=== PATIENT | female | born 1990 | race African-American/Black ===

== ENCOUNTER 2016-05-26 14:29 | Observation (INO) | payer SELFPAY ==
[2016-05-26] VITALS (7 sets, daily range): BP systolic 117–150; BP diastolic 59–78; PULSE 101–128; RESP 16–38; TEMP 98.9–102.8; O2SAT 96–100
[~2016-05-26] VITALS: Ht 175.3 cm; Wt 77.5 kg
[~2016-05-26 14:29] MED LIST: BACT800T5 PO; HYDR-3535 PO; LORTA5 PO; MACR100C2 PO; TEMA15 PO
[2016-05-26] MEDS ORDERED: IBUPROFEN 800 MG TAB PO ONE (15:00)
[2016-05-26] MEDS ORDERED: ACETAMINOPHEN 325 MG TAB PO ONE (15:00)
--- NOTE | 2016-05-26 15:03 | PD ---
HPI Chief Complaint: Respiratory Symptoms Time Seen by Provider: 15:03 Travel History International Travel<30 days: No Contact w/Intl Traveler<30days: No Traveled to known affect area: No History of Present Illness HPI 26-year-old female with history of asthma presents to the emergency department for evaluation of difficulty breathing with cough, chest congestion, fever, chills. Patient states that she feels as though she may have been "battling off something" for an unknown amount of time but was awoken this morning by not being able to breathe. Denies any nausea or vomiting. No diarrhea. Patient has no other symptoms to report at this time. PFSH Past Medical History Asthma: Yes Blood Disorders: No Cancer: No Cardiovascular Problems: No Chemotherapy: No Diminished Hearing: No Endocrine: No Gastrointestinal Disorders: No Genitourinary: No Headaches: Yes (WITH ASTHMIC EPISODES) Immune Disorder: No Implanted Vascular Access Dvce: No Musculoskeletal: Yes Neurologic: Yes Psychiatric: No Reproductive: No Respiratory: Yes (ASTHMA) Immunizations Current: No Radiation Therapy: No : 0 Para: 0 Miscarriage: 0 : 0 Past Surgical History AICD: No Arteriovenous Shunt: No Gynecologic Surgery: Yes (cyst removed from breast BILATERAL) Insulin Pump: No Joint Replacement: No Pacemaker: No Other Surgery: Yes (BILATERAL BREAST CYSTS) Social History Alcohol Use: No Tobacco Use: No Substance Use: Yes (H/O MARIJUANA DAILY) Allergies-Medications (Allergen,Severity, Reaction): Coded Allergies: No Known Allergies (Verified , 05/26/16) Reported Meds & Prescriptions Reported Meds & Active Scripts Active Reported Flexeril (Cyclobenzaprine HCl) 7.5 Mg Tab Unknown Dose PO TID Hydrocodone-Acetaminophen 10-325 mg Tab 1 Tab PO Q4H PRN Review of Systems Except as stated in HPI: all other systems reviewed are Neg Physical Exam Narrative GENERAL: Well-nourished female patient, ambulatory and in no acute distress SKIN: Warm and dry. HEAD: Atraumatic. Normocephalic. EYES: Pupils equal and round. No scleral icterus. No injection or drainage. ENT: No nasal bleeding or discharge. Mucous membranes pink and moist. NECK: Trachea midline. No JVD. CARDIOVASCULAR: Tachycardic rate and rhythm. No murmur appreciated. RESPIRATORY: Tachypneic. No accessory muscle use. Diminished throughout with a very faint inspiratory and expiratory wheeze to auscultation. Breath sounds equal bilaterally. GASTROINTESTINAL: Abdomen soft, non-tender, nondistended. Hepatic and splenic margins not palpable. MUSCULOSKELETAL: No obvious deformities. No clubbing. No cyanosis. No edema. NEUROLOGICAL: Awake and alert. No obvious cranial nerve deficits. Motor grossly within normal limits. Normal speech. PSYCHIATRIC: Appropriate mood and affect; insight and judgment normal. Data Data Last Documented VS Vital Signs Date Time Temp Pulse Resp B/P Pulse Ox O2 Delivery O2 Flow Rate FiO2 05/26/16 17:25 99 Nasal Cannula 2 05/26/16 17:15 114 18 05/26/16 17:15 102.8 146/73 Orders Electrocardiogram (05/26/16 15:00) Complete Blood Count With Diff (05/26/16 15:00) Comprehensive Metabolic Panel (05/26/16 15:00) Prothrombin Time / Inr (Pt) (05/26/16 15:00) Act Partial Throm Time (Ptt) (05/26/16 15:00) Lactic Acid Sepsis Protocol (05/26/16 15:00) Ckmb (Isoenzyme) Profile (05/26/16 15:00) Troponin I (05/26/16 15:00) Urinalysis - C+S If Indicated (05/26/16 15:00) Influenzae A/B Antigen (05/26/16 15:00) Blood Culture (05/26/16 15:00) Chest, Single Ap (05/26/16 15:00) Acetaminophen (Tylenol) (05/26/16 15:00) Ibuprofen (Motrin) (05/26/16 15:00) Ed Urine Pregnancytest Poc (05/26/16 15:00) Albuterol-Ipratropium Neb (Duoneb Neb) (05/26/16 15:30) D-Dimer (05/26/16 15:19) CKMB (05/26/16 15:10) CKMB% (05/26/16 15:10) Albuterol-Ipratropium Neb (Duoneb Neb) (05/26/16 17:45) Ct Pulmonary Angiogram (05/26/16 17:37) Ceftriaxone Inj (Rocephin Inj) (05/26/16 17:45) Azithromycin Inj (Zithromax Inj) (05/26/16 17:45) Labs Laboratory Tests Test 05/26/16 05/26/16 05/26/16 13:10 15:00 15:10 Prothrombin Time 11.0 SEC Prothromb Time International 1.0 RATIO Ratio Activated Partial 27.2 SEC Thromboplast Time D-Dimer Quantitative (PE/DVT) 1.24 MG/L FEU Urine Color COLORLESS Urine Turbidity CLEAR Urine pH 6.0 Urine Specific [place] 1.003 Urine Protein NEG mg/dL Urine Glucose (UA) NEG mg/dL Urine Ketones NEG mg/dL Urine Occult Blood SMALL Urine Nitrite NEG Urine Bilirubin NEG Urine Urobilinogen LESS THAN 2.0 MG/DL Urine Leukocyte Esterase NEG Urine RBC 1 /hpf Urine WBC LESS THAN 1 /hpf Urine Squamous Epithelial <1 /hpf Cells Microscopic Urinalysis Comment CULT NOT INDICATED White Blood Count 6.6 TH/MM3 Red Blood Count 4.06 MIL/MM3 Hemoglobin 10.6 GM/DL Hematocrit 32.9 % Mean Corpuscular Volume 81.1 FL Mean Corpuscular Hemoglobin 26.1 PG Mean Corpuscular Hemoglobin 32.2 % Concent Red Cell Distribution Width 17.1 % Platelet Count 276 TH/MM3 Mean Platelet Volume 7.4 FL Neutrophils (%) (Auto) 84.0 % Lymphocytes (%) (Auto) 6.5 % Monocytes (%) (Auto) 7.9 % Eosinophils (%) (Auto) 1.4 % Basophils (%) (Auto) 0.2 % Neutrophils # (Auto) 5.5 TH/MM3 Lymphocytes # (Auto) 0.4 TH/MM3 Monocytes # (Auto) 0.5 TH/MM3 Eosinophils # (Auto) 0.1 TH/MM3 Basophils # (Auto) 0.0 TH/MM3 CBC Comment DIFF FINAL Differential Comment Sodium Level 139 MEQ/L Potassium Level 3.3 MEQ/L Chloride Level 107 MEQ/L Carbon Dioxide Level 22.9 MEQ/L Anion Gap 9 MEQ/L Blood Urea Nitrogen 6 MG/DL Creatinine 0.97 MG/DL Estimat Glomerular Filtration 83 ML/MIN Rate Random Glucose 80 MG/DL Lactic Acid Level 2.1 mmol/L Calcium Level 8.7 MG/DL Total Bilirubin 0.4 MG/DL Aspartate Amino Transf 11 U/L (AST/SGOT) Alanine Aminotransferase 21 U/L (ALT/SGPT) Alkaline Phosphatase 83 U/L Total Creatine Kinase 257 U/L Creatine Kinase MB LESS THAN 0.5 NG/ML Creatine Kinase MB % 0.2 % Troponin I LESS THAN 0.02 NG/ML Total Protein 7.9 GM/DL Albumin 3.8 GM/DL MDM Medical Decision Making Medical Screen Exam Complete: Yes Emergency Medical Condition: Yes Medical Record Reviewed: Yes Differential Diagnosis Asthma exacerbation versus pneumonia versus influenza versus sepsis Narrative Course 26 year-old female presents to emergency department for evaluation. Workup was initiated in triage. Once a medical bed becomes available, patient will be transferred and care assumed by that provider. Condition: Stable Francisca Cash May 26, 2016 15:03
--- NOTE | 2016-05-26 15:29 | RADRPT ---
EXAM DATE/TIME: 05/26/2016 15:28 [facility] COMPARISON: No previous studies available for comparison. INDICATIONS : Severe shortness of breath with history of asthma. MEDICAL HISTORY : asthma SURGICAL HISTORY : None. ENCOUNTER: Initial ACUITY: 1 day PAIN SCORE: 3/10 LOCATION: Bilateral upper chest FINDINGS: A single view of the chest demonstrates the lungs to be symmetrically aerated without evidence of mas s, infiltrate or effusion. The cardiomediastinal contours are unremarkable. Osseous structures are intact. CONCLUSION: No acute disease. Tom Ordoñez MD FACR on May 26, 2016 at 15:27 Board Certified Radiologist. This report was verified electronically.
[2016-05-26] MEDS ORDERED: RESP: ALBUTEROL 2.5 MG/IPRATROPIUM 0.5 MG NEB (SCH) NEB ONE (15:30)
[2016-05-26 15:47] LABS: AUTOMATED NEUTROPHIL # 5.5 TH/MM3 (1.8-7.7); BASOPHIL % 0.2 % (0.0-2.0); EOSINOPHIL # 0.1 TH/MM3 (0-0.4); EOSINOPHIL % 1.4 % (0.0-4.0); HEMATOCRIT 32.9 % (35.0-46.0); HEMO FLAGS DIFF FINAL; LYMPH % 6.5 % (9.0-44.0); LYMPHOCYTE # 0.4 TH/MM3 (1.0-4.8); MEAN CELL VOLUME 81.1 FL (80.0-100.0); MEAN CORPUSCULAR HEMOGLOBIN 26.1 PG (27.0-34.0); MEAN CORPUSCULAR HGB CONC 32.2 % (32.0-36.0); MONO % 7.9 % (0.0-8.0); PLATELET COUNT 276 TH/MM3 (150-450); RED BLOOD COUNT 4.06 MIL/MM3 (4.00-5.30); RED CELL DISTRIBUTION WIDTH 17.1 % (11.6-17.2); WHITE BLOOD COUNT 6.6 TH/MM3 (4.0-11.0)
[2016-05-26 15:52] LABS: BLOOD, URINE SMALL (NEG); GLUCOSE,URINE NEG (NEG); KETONE, URINE NEG (NEG); NITRITE,URINE NEG (NEG); SQUAMOUS EPITHELIAL CELL URINE <1 /hpf (0-5); URINE COLOR COLORLESS (YELLW/STRAW)
[2016-05-26 16:06] LABS: COMMENT (UR) CULT NOT INDICATED; CULTURE IF INDICATED CULT NOT INDICATED
[2016-05-26 16:08] LABS: APTT (PATIENT) 27.2 SEC (24.3-30.1)
[2016-05-26 16:16] LABS: ANION GAP 9 MEQ/L (5-15); AST (GOT) 11 U/L (15-37); BICARBONATE 22.9 MEQ/L (21.0-32.0); BLOOD UREA NITROGEN 6 MG/DL (7-18); CHLORIDE 107 MEQ/L (98-107); GLOMERULAR FILTRATION RATE 83 ML/MIN (>89); POTASSIUM 3.3 MEQ/L (3.5-5.1); SODIUM (NA) 139 MEQ/L (136-145)
[2016-05-26 16:21] LABS: ALKALINE PHOSPHATASE 83 U/L (45-117); ALT (GPT) 21 U/L (10-53); CREATINE KINASE 257 U/L (26-192); TOTAL BILIRUBIN ADULT 0.4 MG/DL (0.2-1.0)
[2016-05-26 16:35] LABS: CKMB LESS THAN 0.5 NG/ML (0.5-3.6)
[2016-05-26] MEDS ORDERED: HYDR-3583 PO (17:21)
[2016-05-26] MEDS ORDERED: CYCL7.5T33 PO (17:21)
[2016-05-26 17:37] LABS: LACTIC ACID GHOST NOT REPORTABLE
[2016-05-26] MEDS ORDERED: cefTRIAXone INJ 2,000 MG in SODIUM CHLORIDE 0.9% INJ 100 ML IV ONE (17:45)
[2016-05-26] MEDS ORDERED: AZITHROMYCIN INJ 500 MG in SODIUM CHLOR 0.9% 250 ML INJ 250 ML IV ONE (17:45)
--- NOTE | 2016-05-26 18:13 | PD ---
Physical Exam Date Seen by Provider: May 26, 2016 Time Seen by Provider: 17:30 Narrative Patient presented to the A pod from triage where she had been initially evaluated by PA. Her chief complaint was cough, shortness of breath, congestion , fever and chills. Her chest exam shows decreased breath sounds with respiratory expiratory wheezing. Data Data Last Documented VS Vital Signs Date Time Temp Pulse Resp B/P Pulse Ox O2 Delivery O2 Flow Rate FiO2 05/26/16 18:30 100.7 102 18 134/59 98 Nasal Cannula 2 Orders Electrocardiogram (05/26/16 15:00) Complete Blood Count With Diff (05/26/16 15:00) Comprehensive Metabolic Panel (05/26/16 15:00) Prothrombin Time / Inr (Pt) (05/26/16:00) Act Partial Throm Time (Ptt) (05/26/16:00) Lactic Acid Sepsis Protocol (05/26/16 15:00) Ckmb (Isoenzyme) Profile (05/26/16 15:00) Troponin I (05/26/16 15:00) Urinalysis - C+S If Indicated (05/26/16 15:00) Influenzae A/B Antigen (05/26/16 15:00) Blood Culture (05/26/16 15:00) Chest, Single Ap (05/26/16 15:00) Acetaminophen (Tylenol) (05/26/16 15:00) Ibuprofen (Motrin) (05/26/16 15:00) Ed Urine Pregnancytest Poc (05/26/16 15:00) Albuterol-Ipratropium Neb (Duoneb Neb) (05/26/16 15:30) D-Dimer (05/26/16 15:19) CKMB (05/26/16 15:10) CKMB% (05/26/16 15:10) Albuterol-Ipratropium Neb (Duoneb Neb) (05/26/16 17:45) Ct Pulmonary Angiogram (05/26/16 17:37) Ceftriaxone Inj (Rocephin Inj) (05/26/16 17:45) Azithromycin Inj (Zithromax Inj) (05/26/16 17:45) Sodium Chlor 0.9% 1000 Ml Inj (Ns 1000 M (05/26/16 19:00) Sodium Chlor 0.9% 1000 Ml Inj (Ns 1000 M (05/26/16 19:00) Iohexol 350 Inj (Omnipaque 350 Inj) (05/26/16 19:15) Labs Laboratory Tests Test 05/26/16 05/26/16 05/26/16 05/26/16 13:10 15:00 15:10 17:25 Prothrombin Time 11.0 SEC Prothromb Time International 1.0 RATIO Ratio Activated Partial 27.2 SEC Thromboplast Time D-Dimer Quantitative (PE/DVT) 1.24 MG/L FEU Urine Color COLORLESS Urine Turbidity CLEAR Urine pH 6.0 Urine Specific [place] 1.003 Urine Protein NEG mg/dL Urine Glucose (UA) NEG mg/dL Urine Ketones NEG mg/dL Urine Occult Blood SMALL Urine Nitrite NEG Urine Bilirubin NEG Urine Urobilinogen LESS THAN 2.0 MG/DL Urine Leukocyte Esterase NEG Urine RBC 1 /hpf Urine WBC LESS THAN 1 /hpf Urine Squamous Epithelial <1 /hpf Cells Microscopic Urinalysis Comment CULT NOT INDICATED White Blood Count 6.6 TH/MM3 Red Blood Count 4.06 MIL/MM3 Hemoglobin 10.6 GM/DL Hematocrit 32.9 % Mean Corpuscular Volume 81.1 FL Mean Corpuscular Hemoglobin 26.1 PG Mean Corpuscular Hemoglobin 32.2 % Concent Red Cell Distribution Width 17.1 % Platelet Count 276 TH/MM3 Mean Platelet Volume 7.4 FL Neutrophils (%) (Auto) 84.0 % Lymphocytes (%) (Auto) 6.5 % Monocytes (%) (Auto) 7.9 % Eosinophils (%) (Auto) 1.4 % Basophils (%) (Auto) 0.2 % Neutrophils # (Auto) 5.5 TH/MM3 Lymphocytes # (Auto) 0.4 TH/MM3 Monocytes # (Auto) 0.5 TH/MM3 Eosinophils # (Auto) 0.1 TH/MM3 Basophils # (Auto) 0.0 TH/MM3 CBC Comment DIFF FINAL Differential Comment Sodium Level 139 MEQ/L Potassium Level 3.3 MEQ/L Chloride Level 107 MEQ/L Carbon Dioxide Level 22.9 MEQ/L Anion Gap 9 MEQ/L Blood Urea Nitrogen 6 MG/DL Creatinine 0.97 MG/DL Estimat Glomerular Filtration 83 ML/MIN Rate Random Glucose 80 MG/DL Lactic Acid Level 2.1 mmol/L 1.6 mmol/L Calcium Level 8.7 MG/DL Total Bilirubin 0.4 MG/DL Aspartate Amino Transf 11 U/L (AST/SGOT) Alanine Aminotransferase 21 U/L (ALT/SGPT) Alkaline Phosphatase 83 U/L Total Creatine Kinase 257 U/L Creatine Kinase MB LESS THAN 0.5 NG/ML Creatine Kinase MB % 0.2 % Troponin I LESS THAN 0.02 NG/ML Total Protein 7.9 GM/DL Albumin 3.8 GM/DL [facility] Supervised Visit with HORACE: Yes Interpretation(s) EKG shows a sinus rhythm with a rate of 102. No ST segment elevation or depression. Differential Diagnosis Differential diagnosis includes but is not limited to viral respiratory illness , bronchitis, pneumonia, allergies, CHF, asthma/COPD. Narrative Course Patient presented for evaluation of respiratory symptoms. Last Impressions Chest X-Ray 05/26/16 1500 Signed Impressions: Service Date/Time: Tuesday, May 26, 2016 15:28 - CONCLUSION: No acute disease. Tom Ordoñez MD FACR The chest x-ray was independently viewed by me. CBC & BMP Diagram 05/26/16 15:10 Cardiac enzymes are negative. Initial lactic acid was 2.1. Repeat lactic acid was 1.6. UA is negative. Flu screen is negative. D-dimer is 1.24 which has prompted the ordering of a CT for PE. In the meantime, the patient is being treated with Duonebs and empiric ABX for pneumonia including Rocephin and Zithromax. CT for PE is negative. This patient needs sepsis criteria. Sepsis Criteria SIRS Criteria (2 or more): Temp > 100.9 or < 96.8, Heart rate over 90, RR > 20 or PaCO2 < 32 Sepsis Criteria (SIRS+source): Infect source susp/known Diagnosis Primary Impression: Sepsis Qualified Code: A41.9 - Sepsis, due to unspecified organism Condition: Daly Ordoñez MD May 26, 2016 18:13
[2016-05-26] MEDS: RESP: ALBUTEROL 2.5 MG/IPRATROPIUM 0.5 MG NEB (SCH) INH (18:32)
[2016-05-26] MEDS ORDERED: SODIUM CHLOR 0.9% 1000 ML INJ 1,000 ML IV SCH (19:00)
[2016-05-26] MEDS ORDERED: SODIUM CHLOR 0.9% 1000 ML INJ 1,000 ML IV ONE (19:00)
[2016-05-26] MEDS ORDERED: IOHEXOL 350 MG/ML 10 ML VIAL (for RAD DIAG) IV ONE (19:15)
--- NOTE | 2016-05-26 19:36 | RADRPT ---
EXAM DATE/TIME: 05/26/2016 19:02 [facility] COMPARISON: No previous studies available for comparison. INDICATIONS : Cough and congestion, short of breath IV CONTRAST: 50 cc Omnipaque 350 (iohexol) IV RADIATION DOSE: 13.52 CTDIvol (mGy) MEDICAL HISTORY : Asthma. SURGICAL HISTORY : Back surgery. Bilateral breast cysts removed. ENCOUNTER: Initial ACUITY: 1 day PAIN SCALE: 2/10 LOCATION: Bilateral chest TECHNIQUE: Volumetric scanning of the chest was performed using a pulmonary embolism protocol MIP images were re constructed. Using automated exposure control and adjustment of the mA and/or kV according to patien t size, radiation dose was kept as low as reasonably achievable to obtain optimal diagnostic quality images. FINDINGS: PULMONARY ARTERIES: No filling defects are seen in the pulmonary arteries through the segmental level. LUNGS: There is no consolidation or pneumothorax . No concerning pulmonary nodule is visualized. PLEURAE: There is no pleural thickening or pleural effusion. MEDIASTINUM: There is good visualization of the great vessels of the middle mediastinum. No evidence of mediastin al or hilar adenopathy/mass. MUSCULOSKELETAL: Within normal limits for patient age. MISCELLANEOUS: The visualized upper abdominal organs demonstrate no acute abnormality. CONCLUSION: No acute disease. No evidence of pulmonary embolism. Bulmaro Kessler MD on May 26, 2016 at 19:33 Board Certified Radiologist. This report was verified electronically.
[2016-05-26] MEDS: SODIUM CHLORIDE 0.9% FLUSH 5 ML FLUSH IV SCH (21:45)
[2016-05-26] MEDS ORDERED: CYCLOBENZAPRINE HCL 10 MG TAB PO PRN (21:45)
[2016-05-26] MEDS ORDERED: SODIUM CHLORIDE 0.9% FLUSH 5 ML FLUSH IV PRN (21:45)
[2016-05-26] MEDS ORDERED: methylPREDNISolone SOD SUCC 125 MG/2 ML VIAL IV PUSH ONE (22:00)
[2016-05-26] MEDS: SODIUM CHLOR 0.9% 1000 ML INJ 1,000 ML IV SCH (22:27)
[2016-05-26] MEDS: HEPARIN SODIUM - SQ 10,000 UNITS/ML VIAL SQ SCH (22:28)
[2016-05-27] VITALS (11 sets, daily range): BP systolic 113–128; BP diastolic 59–72; PULSE 85–117; RESP 16–24; TEMP 98.1–98.7; O2SAT 95–97
--- NOTE | 2016-05-27 00:26 | HHI.HP ---
HPI Service Family Medicine Primary Care Physician No Primary Care Physician Admission Diagnosis SEPSIS Diagnoses: International Travel<30 Days: No Contact w/Intl Traveler<30days: No Known Affected Area: No History of Present Illness 26 year-old female with asthma presents to ED with difficulty breathing x 1 day. She felt like she "had been battling something" for about a week with intermittent chills and dry cough, but was breathing normally until last evening when "felt I was suffocating". She used her albuterol rescue inhaler 10 times overnight and came in this evening when symptoms continued. Denies fever, headache, runny nose, sore throat, chest pain, nausea/vomiting, constipation/diarrhea, calf pain. Feels heart is beating fast, which started in the ED after starting breathing treatments. Works at [employer] with many sick contacts, but denies any sick family members. Her asthma is typically well-controlled, with use of rescue albuterol inhaler 1-2 times/ day once a week, with no hospitalizations over the last year, no nighttime awakenings, and no limitation of activities. (Yoli Blevins MD R1) Review of Systems Constitutional: COMPLAINS OF: Chills, DENIES: Fever Eyes: DENIES: Blurred vision, Double Vision Ears, nose, mouth, throat: DENIES: Throat pain, Running Nose Respiratory: COMPLAINS OF: Cough, Wheezing, Shortness of breath, DENIES: Sputum production Cardiovascular: COMPLAINS OF: Palpitations, DENIES: Chest pain, Syncope, Lower Extremity Edema Gastrointestinal: DENIES: Abdominal pain, Constipation, Nausea, Vomiting Genitourinary: DENIES: Urgency, Hematuria, Dysuria Musculoskeletal: DENIES: Joint pain, Muscle aches Integumentary: DENIES: Rash Hematologic/lymphatic: DENIES: Bruising Neurologic: DENIES: Headache, Localized weakness, Paresthesias Psychiatric: DENIES: Mood changes (Yoli Blevins MD R1) Past Family Social History Past Medical History Asthma Breast cysts b/l Leg spasms Past Surgical History Removal of breast cysts bilaterally Reported Medications REPORTED Flexeril (Cyclobenzaprine HCl) 7.5 Mg Tab Unknown Dose PO TID Hydrocodone-Acetaminophen 10-325 mg Tab 1 Tab PO Q4H PRN (Yoli Blevins MD R1) Allergies: Coded Allergies: No Known Allergies (Verified , 05/26/16) Family History Family history of asthma: mother, sister, grandmother. Family history of diabetes and hypertension. Social History Denies tobacco or alcohol. Occasional marijuana use. Denies other illicit drugs. Works at [employer]. No PCP (Yoli Blevins MD R1) Physical Exam Vital Signs Vital Signs Date Time Temp Pulse Resp B/P Pulse Ox O2 Delivery O2 Flow Rate FiO2 05/26/16 20:33 98.9 106 20 117/68 98 Room Air 05/26/16 18:30 100.7 102 18 134/59 98 Nasal Cannula 2 05/26/16 18:05 100.7 101 16 134/59 98 Nasal Cannula 2 05/26/16 17:25 99 Nasal Cannula 2 05/26/16 17:15 114 18 96 Room Air 05/26/16 17:15 102.8 108 18 146/73 96 Room Air 05/26/16 17:10 102.8 112 18 146/73 96 Room Air 05/26/16 14:34 128 38 100 05/26/16 14:30 102.8 125 22 150/78 99 Room Air Physical Exam GENERAL: Adult female in no acute distress. SKIN: No rashes. Warm and dry HEENT: PERRL. EOMI. Mydriasis. Oropharynx non-erythematous. No tonsillar erythema, exudate, or hypertrophy. NECK: No LAD. AROM neck full. CV: Tachycardic (120). Regular rhythm. No murmurs. RESP: Inspiratory wheezing in all lung calero. Good air movement. Speaks in full sentences. On 2L NC. GI: Abdomen soft, non-tender, nondistended. +BS MSK: No periopheral edema. No calf tenderness NEURO: Awake, alert. CN II-XII intact. Motor and sensory grossly within normal limits. Upper and lower extremities with sensation intact to light touch and 5/ 5 strength Laboratory Laboratory Tests Test 05/26/16 05/26/16 05/26/16 05/26/16 13:10 15:00 15:10 17:25 Prothrombin Time 11.0 Prothromb Time International 1.0 Ratio Activated Partial 27.2 Thromboplast Time D-Dimer Quantitative (PE/DVT) 1.24 Urine Color COLORLESS Urine Turbidity CLEAR Urine pH 6.0 Urine Specific [place] 1.003 Urine Protein NEG Urine Glucose (UA) NEG Urine Ketones NEG Urine Occult Blood SMALL Urine Nitrite NEG Urine Bilirubin NEG Urine Urobilinogen LESS THAN 2.0 Urine Leukocyte Esterase NEG Urine RBC 1 Urine WBC LESS THAN 1 Urine Squamous Epithelial <1 Cells Microscopic Urinalysis Comment CULT NOT INDICATED White Blood Count 6.6 Red Blood Count 4.06 Hemoglobin 10.6 Hematocrit 32.9 Mean Corpuscular Volume 81.1 Mean Corpuscular Hemoglobin 26.1 Mean Corpuscular Hemoglobin 32.2 Concent Red Cell Distribution Width 17.1 Platelet Count 276 Mean Platelet Volume 7.4 Neutrophils (%) (Auto) 84.0 Lymphocytes (%) (Auto) 6.5 Monocytes (%) (Auto) 7.9 Eosinophils (%) (Auto) 1.4 Basophils (%) (Auto) 0.2 Neutrophils # (Auto) 5.5 Lymphocytes # (Auto) 0.4 Monocytes # (Auto) 0.5 Eosinophils # (Auto) 0.1 Basophils # (Auto) 0.0 CBC Comment DIFF FINAL Differential Comment Sodium Level 139 Potassium Level 3.3 Chloride Level 107 Carbon Dioxide Level 22.9 Anion Gap 9 Blood Urea Nitrogen 6 Creatinine 0.97 Estimat Glomerular Filtration 83 Rate Random Glucose 80 Lactic Acid Level 2.1 1.6 Calcium Level 8.7 Total Bilirubin 0.4 Aspartate Amino Transf 11 (AST/SGOT) Alanine Aminotransferase 21 (ALT/SGPT) Alkaline Phosphatase 83 Total Creatine Kinase 257 Creatine Kinase MB LESS THAN 0.5 Creatine Kinase MB % 0.2 Troponin I LESS THAN 0.02 Total Protein 7.9 Albumin 3.8 Date/Time Procedure Status Source Growth 05/26/16 16:15 Influenza Types A,B Antigen (SUGEY) - Final Complete Nasal Washing NEGATIVE FOR FLU A AND B ANTIGEN.... 05/26/16 15:15 Aerobic Blood Culture Received Blood Peripheral Pending 05/26/16 15:15 Anaerobic Blood Culture Received Blood Peripheral Pending (Yoli Blevins MD R1) Result Diagram: 05/26/16 1510 05/26/[address] Angiography 05/26/16 1737 Signed Impressions: Service Date/Time: Thursday, May 26, 2016 19:02 - CONCLUSION: No acute disease. No evidence of pulmonary embolism. Bulmaro Kessler MD Chest X-Ray 05/26/16 1500 Signed Impressions: Service Date/Time: Thursday, May 26, 2016 15:28 - CONCLUSION: No acute disease. Tom Ordoñez MD FACR (Yoli Blevins MD R1) Septic Shock Reassessment Heart: Other (Tachycardic, regular rhythm) Lungs: Other (wheezing) Skin: Warm Peripheral Pulses: Bounding Right Radial Bounding Left Radial Bounding Right Posterior Tibial Bounding Left Posterior Tibial Capillary Refill: <2 seconds (Yoli Blevins MD R1) Assessment and Plan Assessment and Plan 26-year-old female with asthma admitted 05/26/16 to inpatient for asthma exacerbation and sepsis. Code Status Full Discussed Condition With SDW: Dr. Miller (Yoli Blevins MD R1) Attending Attestation The patient has been seen and examined. The chart and all resident notes have been reviewed. I agree that inpatient care is appropriate and that a two midnight stay is expected for the reasons documented in the resident history and physical. I have discussed this with the resident and certify the resident s order for inpatient admission. (Daly Muro MD) Problem List: (1) Sepsis Status: Acute Plan: On admission, febrile to 102.8F, tachycardic 128, tachypneic to 38. Lactic acid was also elevated to 2.1 on admission. Suspect that tachycardia and tachypnea secondary to asthma exacerbation and albuterol treatments, however, fever suggestive of underlying infection Differential for source infection: PNA vs UTI vs asthma exacerbation vs influenza vs bronchitis. As CXR and U/A returned wnl and Influenza A/B testing negative, increased suspicion for viral bronchitis as source of infection. Considered obtaining respiratory panel, not ordered as unlikely to change treatment plan. -Admit to inpatient under Dr. Muro -Antibiotics -S/p Azithromycin and Rocephin x1 in ED -Continue Rocephin 1g IV daily (05/26- ) -Continue Azithromycin 500mg PO daily (05/26- ) -Rule out infectious source -U/A, CXR wnl -Influenza A/B negative -Blood cultures (05/26) x2 pending -D-dimer per ED returned elevated 1.2 -Subsequent CT angiogram negative for PE -Fluids -Maintenance IVF of NS @120 mL/hr -No fluid boluses in ED. In light of reassuring B/P, adequate MAP, good kidney function, reassuring fluid status, downtrending lactic acid, initiated MIVF -Monitor I/Os -Supportive Care -Vitals q4h, continuous pulse ox with O2 support to maintain saturations 89%+ , OOB ad fred, Regular diet -Case management to assist with finding PCP- last seen in ED Dec for hemorrhagic cystitis- has not found PCP since then. Unsure who is prescribing reported home meds -Repeat CBC, BMP, Lactic acid in AM (2) Asthma exacerbation Status: Acute Plan: History of mild intermittent asthma, well controlled with albuterol rescue inhaler, presenting with acute shortness of breath 1 day. Presumed secondary to infection, as patient presented with fever of 102.8. Many sick contacts at [employer] where she works. -Bronchodilators q2h -Albuterol neb q4h ALT NORMA -Duo-Neb q4h ALT NORMA -Steroids -Methylprednisolone 60mg IV x1 in ED -Prednisone 40mg PO daily (3) Leg cramps Status: Chronic Plan: -Continue reported home Flexoril 7.5mg TID -Hold reported home [place] 10-325 q4h PRN pain -Follow up with who is prescribing this (no PCP, not in external med reconciliation) (4) Fluid, Electrolytes, Nutrition, Prophylaxis Status: Acute Plan: Fluids: MIVF- NS@120mL/hr Electrolytes: monitor and replete as needed Nutrition: regular diet DVT prophylaxis: Heparin 5000 units TID GI prophylaxis: Famotidine 20mg daily, while on steroids (Yoli Blevins MD R1) Problem Qualifiers (1) Sepsis: Qualified Code: A41.9 - Sepsis, due to unspecified organism (2) Leg cramps: Qualified Code: R25.2 - Cramp of both lower extremities Yoli Blevins MD R1 May 27, 2016 00:26 Daly Muro MD May 27, 2016 22:14
[2016-05-27] MEDS: RESP: ALBUTEROL 2.5 MG/3 ML NEB (SCH) NEB ×2 (01:11→04:16)
[2016-05-27] MEDS: ACETAMINOPHEN 325 MG TAB PO PRN ×4 (01:29→22:21)
[2016-05-27] MEDS ORDERED: RESP: ALBUTEROL 2.5 MG/IPRATROPIUM 0.5 MG NEB (SCH) NEB (02:00)
[2016-05-27] MEDS: FAMOTIDINE 20 MG TAB PO SCH ×2 (04:33→08:37)
[2016-05-27] MEDS ORDERED: RESP: ALBUTEROL 2.5 MG/3 ML NEB (PRN) NEB (04:45)
[2016-05-27] MEDS ORDERED: RESP: ALBUTEROL 2.5 MG/IPRATROPIUM 0.5 MG NEB (PRN) NEB (04:45)
[2016-05-27] MEDS: HEPARIN SODIUM - SQ 10,000 UNITS/ML VIAL SQ SCH ×3 (06:28→22:22)
[2016-05-27 08:00] LABS: AUTOMATED NEUTROPHIL # 4.4 TH/MM3 (1.8-7.7); BASOPHIL % 0.6 % (0.0-2.0); HEMATOCRIT 30.3 % (35.0-46.0); HEMO FLAGS DIFF FINAL; LYMPHOCYTE # 0.2 TH/MM3 (1.0-4.8); MEAN CORPUSCULAR HEMOGLOBIN 26.3 PG (27.0-34.0); MEAN CORPUSCULAR HGB CONC 32.1 % (32.0-36.0); MONO % 4.1 % (0.0-8.0); NEUT % 91.3 % (16.0-70.0); PLATELET COUNT 250 TH/MM3 (150-450); RED CELL DISTRIBUTION WIDTH 16.8 % (11.6-17.2); WHITE BLOOD COUNT 4.8 TH/MM3 (4.0-11.0)
--- NOTE | 2016-05-27 08:01 | HHI.FPPN ---
Subjective Subjective Patient seen and examined. Case reviewed and discussed Please referred to resident H&P for further details regarding the HPI, ROS, PMH , SurgHx, FH and SocHx In summary, patient is a 26yoF with a history of asthma presenting with shortness of breath x 1 day. She tried using her albuterol inhaler without improvement and came in to ED. Patient seen in her hospital bed, reports breathing improved from admission Still with significant CRAFT. Hospital Objective Objective Last Impressions CT Angiography 05/26/16 1737 Signed Impressions: Service Date/Time: Thursday, May 26, 2016 19:02 - CONCLUSION: No acute disease. No evidence of pulmonary embolism. Bulmaro Kessler MD Chest X-Ray 05/26/16 1500 Signed Impressions: Service Date/Time: Thursday, May 26, 2016 15:28 - CONCLUSION: No acute disease. Tom Ordoñez MD FACR Laboratory Tests - Abnormals Test 05/26/16 05/26/16 05/26/16 05/27/16 13:10 15:00 15:10 07:36 D-Dimer Quantitative (PE/DVT) 1.24 MG/L FEU Urine Occult Blood SMALL Hemoglobin 10.6 GM/DL 9.7 GM/DL Hematocrit 32.9 % 30.3 % Mean Corpuscular Hemoglobin 26.1 PG 26.3 PG Neutrophils (%) (Auto) 84.0 % 91.3 % Lymphocytes (%) (Auto) 6.5 % 4.0 % Lymphocytes # (Auto) 0.4 TH/MM3 0.2 TH/MM3 Potassium Level 3.3 MEQ/L Blood Urea Nitrogen 6 MG/DL Estimat Glomerular Filtration 83 ML/MIN Rate Lactic Acid Level 2.1 mmol/L Aspartate Amino Transf 11 U/L (AST/SGOT) Total Creatine Kinase 257 U/L Creatine Kinase MB LESS THAN 0.5 NG/ML Troponin I LESS THAN 0.02 NG/ML Red Blood Count 3.70 MIL/MM3 Vital Signs 05/26/16 05/26/16 05/26/16 05/26/16 14:30 14:34 17:10 17:15 Temp 102.8 102.8 102.8 Pulse 125 128 112 108 Resp 22 38 18 18 B/P 150/78 146/73 146/73 Pulse Ox 99 100 96 96 O2 Delivery Room Air Room Air Room Air 05/26/16 05/26/16 05/26/16 05/26/16 17:15 17:25 18:05 18:30 Temp 100.7 100.7 Pulse 114 101 102 Resp 18 16 18 B/P 134/59 134/59 Pulse Ox 96 99 98 98 O2 Delivery Room Air Nasal Cannula Nasal Cannula Nasal Cannula O2 Flow Rate 2 2 2 05/26/16 05/27/16 05/27/16 05/27/16 20:33 01:06 01:06 01:16 Temp 98.9 98.1 Pulse 106 93 Resp 20 16 B/P 117/68 125/72 Pulse Ox 98 96 97 O2 Delivery Room Air Room Air Nasal Cannula FiO2 21 05/27/16 05/27/16 05/27/16 05/27/16 02:51 04:17 04:50 04:50 Temp 98.3 Pulse 85 Resp 16 B/P 120/59 Pulse Ox 95 97 95 O2 Delivery Room Air FiO2 21 21 INTAKE & OUTPUT 05/27/16 07:00 Intake Total 1181 ml Output Total 1500 ml Balance -319 ml Physical exam GENERAL: wdwn female sitting up in bed SKIN: Warm and dry. no rashes HEAD: Normocephalic. AT EYES: No scleral icterus. No injection or drainage. ENT: OP Clear. MMM NC in place NECK: Supple, trachea midline. No JVD or lymphadenopathy. CARDIOVASCULAR: Regular rate and rhythm without murmurs, gallops, or rubs. RESPIRATORY: Breath sounds equal with expiratory wheezing. No crackles. No accessory muscle use. GASTROINTESTINAL: Abdomen soft, non-tender, nondistended. Normal active BS. No rebound. MUSCULOSKELETAL: No cyanosis, or edema. No calf tenderness BACK: Nontender without obvious deformity. No CVA tenderness. NEURO: Awake and alert. Normal speech. CN grossly intact. Assessment Assessment 26yoF with: Sepsis due to clinical PNA Asthma exacerbation Tachycardia Lactic acidosis Anemia PLAN PLAN IVF resuscitation Lactic acid protocol Empiric antibiotic therapy Check flu, RSV, legionella, pneumonococcal Breathing treatments Supplemental oxygen as needed Solu-Medrol Patient seen and examined with the resident team. Case reviewed and discussed Agree with plan of care as discussed with me and documented in the resident note. Daly Muro MD May 27, 2016 08:01
[2016-05-27 08:25] LABS: BICARBONATE 16.8 MEQ/L (21.0-32.0); POTASSIUM 3.6 MEQ/L (3.5-5.1)
[2016-05-27] MEDS: SODIUM CHLOR 0.9% 1000 ML INJ 1,000 ML IV SCH ×2 (08:37→22:20)
[2016-05-27] MEDS: SODIUM CHLORIDE 0.9% FLUSH 5 ML FLUSH IV SCH ×2 (08:43→21:03)
[2016-05-27] MEDS ORDERED: predniSONE 20 MG TAB PO SCH (09:00)
[2016-05-27] MEDS ORDERED: SODIUM CHLOR 0.9% 1000 ML INJ 1,000 ML IV ONE ×2 (09:30→14:15)
[2016-05-27] MEDS ORDERED: NEBULIZER1 MI1 (14:17)
[2016-05-27] MEDS ORDERED: ALBU0.08 NEB (14:17)
[2016-05-27] MEDS ORDERED: MAGNESIUM CITRATE SOLN 300 ML BTL PO ONE (15:00)
[2016-05-27] MEDS: AZITHROMYCIN 250 MG TAB PO SCH (17:14)
[2016-05-27] MEDS ORDERED: cefTRIAXone INJ 1,000 MG in SODIUM CHLORIDE 0.9% INJ 100 ML IV SCH (18:00)
[2016-05-27 18:21] LABS: LACTIC ACID GHOST NOT REPORTABLE
[2016-05-27] MEDS ORDERED: methylPREDNISolone SOD SUCC 40 MG/1 ML VIAL IV PUSH SCH (21:00)
--- NOTE | 2016-05-27 23:55 | EKG ---
Date Performed: 05/26/2016 Time Performed: 17:32:56 PTAGE: 26 years EKG: SINUS TACHYCARDIA ABNORMAL RHYTHM ECG PREVIOUS TRACING : 07/28/2011 15.09 Compared to prior tracing no significant change DOCTOR: Gopal Dang Interpretating Date/Time 05/27/2016 23:53:41
[2016-05-28] VITALS: BP 119/69; PULSE 62; RESP 20; TEMP 98.2; O2SAT 97
[2016-05-28 04:18] VITALS: BP 118/88; PULSE 67; RESP 16; TEMP 98; O2SAT 96
[2016-05-28] MEDS: SODIUM CHLOR 0.9% 1000 ML INJ 1,000 ML IV SCH ×2 (06:45→08:32)
[2016-05-28] MEDS: HEPARIN SODIUM - SQ 10,000 UNITS/ML VIAL SQ SCH (06:48)
[2016-05-28 08:00] VITALS: BP 120/80; PULSE 81; RESP 18; TEMP 98; O2SAT 99
[2016-05-28] MEDS: SODIUM CHLORIDE 0.9% FLUSH 5 ML FLUSH IV SCH (08:30)
[2016-05-28] MEDS: FAMOTIDINE 20 MG TAB PO SCH (08:31)
[2016-05-28] MEDS: AZITHROMYCIN 250 MG TAB PO SCH (08:31)
[2016-05-28] MEDS ORDERED: predniSONE 50 MG TAB PO SCH (09:00)
[2016-05-28 10:18] VITALS: O2SAT 96
--- NOTE | 2016-05-28 10:25 | HHI.DCPOC ---
Discharge Care Plan Diagnosis: (1) Sepsis (2) Asthma exacerbation Goals to Promote Your Health * To prevent worsening of your condition and complications * To maintain your health at the optimal level Directions to Meet Your Goals Take your medications as prescribed Follow your dietary instruction Follow activity as directed Keep your appointments as scheduled Take your immunizations and boosters as scheduled If your symptoms worsen call your PCP, if no PCP go to Urgent Care Center or Emergency Room Smoking is Dangerous to Your Health. Avoid second hand smoke Call the 24-hour hour crisis hotline for domestic abuse at Hi Gibbs MD R2 May 28, 2016 10:25
[2016-05-28] MEDS ORDERED: PRED20 PO (10:34)
[2016-05-28] MEDS ORDERED: PRED10 PO (10:34)
[2016-05-28] MEDS ORDERED: LEVA750T PO (10:35)
--- NOTE | 2016-05-28 11:00 | HHI.FPPN ---
Subjective Remarks Patient is doing well this morning. She feels very close to her baseline level. She is ready to leave the hospital. She understands she needs to take antibiotics and steroids. No pain, no wheezing, no fever, no chills, no palpitations. (Hi Gibbs MD R2) Objective Vitals Vital Signs Date Time Temp Pulse Resp B/P Pulse Ox O2 Delivery O2 Flow Rate FiO2 05/28/16 10:18 96 21 05/28/16 08:00 98.0 81 18 120/80 99 05/28/16 04:18 98.0 67 16 118/88 96 05/28/16 00:00 Room Air 05/28/16 00:00 98.2 62 20 119/69 97 05/27/16 20:00 98.4 97 24 128/72 97 05/27/16 20:00 Room Air 05/27/16 16:00 98.5 117 17 125/61 95 05/27/16 12:00 98.7 89 17 113/59 97 I/O 05/27/16 05/27/16 05/27/16 05/28/16 05/28/16 05/28/16 07:00 15:00 23:00 07:00 15:00 23:00 Intake Total 1181 ml 960 ml 3124 ml 1502 ml Output Total 1500 ml 5 ml Balance -319 ml 960 ml 3119 ml 1502 ml Intake Oral 480 ml 960 ml 960 ml 720 ml IV Total 701 ml 2164 ml 782 ml Output Urine Total 1500 ml 5 ml # Voids 7 10 # Bowel Movements 0 2 0 (Hi Gibbs MD R2) Result Diagram: 05/27/16 0736 05/27/16 0736 Objective Remarks O. CONSTITUTIONAL/GEN: normally nourished, in NAD. EYES: conjunctiva normal, PERRLA, EOMI. ENT: Mouth and pharynx normal. NECK: thyroid midline, carotids symmetrical. LUNGS: clear A-P, respiratory effort is normal. CARDIOVASCULAR: RR without murmur or gallop. No significant edema. GI/ABD: soft without masses, without organomegaly. : no CVA tenderness NEURO: No focal deficits. Gait is normal SKIN: color normal, no rashes noted. HEME/LYMPH: no bruising, petechia or significant adenopathy MUSC: back is normal in appearance. Extremities are normal in appearance. PSYCH/MENTAL STATUS: Alert and oriented x 3. (Hi Gibbs MD R2) A/P Assessment and Plan 26-year-old female with asthma admitted 05/26/16 to inpatient for asthma exacerbation and sepsis. Currently much improved and plan to discharge today with by mouth antibiotics and steroids. Discharge Planning Today (Hi Gibbs MD R2) Attending Attestation Patient seen and examined. Case reviewed and discussed Agree with plan of care as discussed with me and documented in the resident note. (Daly Muro MD) Problem List: (1) Asthma exacerbation Status: Acute Plan: History of mild intermittent asthma, well controlled with albuterol rescue inhaler Likely viral or bacterial component which causes exacerbation. Legionella and strep antigen negative Azithromycin and ceftriaxone day #2 Discharge with 5 days of Levaquin 750 mg by mouth (case management helping with nicole) Steroid taper (9 day total of steroids): 40 mg by mouth daily for 3 days, 20 mg by mouth daily for the next 3 days, 10 mg by mouth daily for the next/last 3 days Negative flu Cultures negative (2) Leg cramps Status: Chronic Plan: -Continue reported home Flexoril 7.5mg TID -Hold reported home Downey 10-325 q4h PRN pain (3) Fluid, Electrolytes, Nutrition, Prophylaxis Status: Acute Plan: Fluids: Hep-Lock IV Electrolytes: monitor and replete as needed Nutrition: regular diet DVT prophylaxis: None indicated, ambulating without difficulty (4) Sepsis Status: Resolved Plan: Resolved (Hi Gibbs MD R2) Problem Qualifiers (1) Leg cramps: Qualified Code: R25.2 - Cramp of both lower extremities (2) Sepsis: Qualified Code: A41.9 - Sepsis, due to unspecified organism Hi Gibbs MD R2 May 28, 2016 11:00 Daly Muro MD May 28, 2016 16:27
[2016-05-28 12:00] VITALS: BP 140/86; PULSE 64; RESP 18; TEMP 97.4; O2SAT 96
[2016-05-28] MEDS ORDERED: cefTRIAXone INJ 1,000 MG in SODIUM CHLORIDE 0.9% INJ 100 ML IV ONE (12:00)
--- NOTE | 2016-05-29 17:08 | HHI.DS ---
Discharge Summary Admission Date May 26, 2016 at 20:36 Admitting Diagnosis SEPSIS (1) Asthma exacerbation (2) Leg cramps Diagnosis: Secondary (3) Sepsis Diagnosis: Secondary Brief History 26 year-old female with asthma presents to ED with difficulty breathing x 1 day. She felt like she "had been battling something" for about a week with intermittent chills and dry cough, but was breathing normally until last evening when "felt I was suffocating". She used her albuterol rescue inhaler 10 times overnight and came in this evening when symptoms continued. Denies fever, headache, runny nose, sore throat, chest pain, nausea/vomiting, constipation/diarrhea, calf pain. Feels heart is beating fast, which started in the ED after starting breathing treatments. Works at [employer] with many sick contacts, but denies any sick family members. Her asthma is typically well-controlled, with use of rescue albuterol inhaler 1-2 times/ day once a week, with no hospitalizations over the last year, no nighttime awakenings, and no limitation of activities. CBC/BMP: 05/27/16 0736 05/27/16 0736 Significant Findings Laboratory Tests Test 05/27/16 05/27/16 05/27/16 07:36 10:40 16:10 Red Blood Count 3.70 MIL/MM3 (4.00-5.30) Hemoglobin 9.7 GM/DL (11.6-15.3) Hematocrit 30.3 % (35.0-46.0) Mean Corpuscular Hemoglobin 26.3 PG (27.0-34.0) Neutrophils (%) (Auto) 91.3 % (16.0-70.0) Lymphocytes (%) (Auto) 4.0 % (9.0-44.0) Lymphocytes # (Auto) 0.2 TH/MM3 (1.0-4.8) Chloride Level 112 MEQ/L (98-107) Carbon Dioxide Level 16.8 MEQ/L (21.0-32.0) Blood Urea Nitrogen 5 MG/DL (7-18) Estimat Glomerular Filtration 81 ML/MIN (>89) Rate Random Glucose 176 MG/DL (74-106) Lactic Acid Level 5.1 mmol/L 3.7 mmol/L 3.2 mmol/L (0.4-2.0) (0.4-2.0) (0.4-2.0) Calcium Level 8.4 MG/DL (8.5-10.1) PE at Discharge O. CONSTITUTIONAL/GEN: normally nourished, in NAD. EYES: conjunctiva normal, PERRLA, EOMI. ENT: Mouth and pharynx normal. NECK: thyroid midline, carotids symmetrical. LUNGS: clear A-P, respiratory effort is normal. CARDIOVASCULAR: RR without murmur or gallop. No significant edema. GI/ABD: soft without masses, without organomegaly. : no CVA tenderness NEURO: No focal deficits. Gait is normal SKIN: color normal, no rashes noted. HEME/LYMPH: no bruising, petechia or significant adenopathy MUSC: back is normal in appearance. Extremities are normal in appearance. PSYCH/MENTAL STATUS: Alert and oriented x 3. Hospital Course Ms Donovan was admitted for asthma exacerbation and sepsis. She was treated with IV Rocephin and by mouth azithromycin and scheduled prednisone, DuoNebs, and albuterol nebs. Her shortness of breath improved and after 2 days, she felt close to her baseline. She was discharged home in stable condition with oral antibiotics and a steroid taper. She is to follow-up with her PCP in one week. Pt Condition on Discharge: Stable Discharge Disposition: Discharge Home Discharge Instructions DIET: Follow Instructions for: As Tolerated, No Restrictions Activities you can perform: Regular-No Restrictions Follow up Referrals: Appointment for Follow Up - 1 Week with PCP New Medications: Levofloxacin (Levaquin) 750 Mg Tab 750 MG PO DAILY Infection #5 Ref 0 TAB Nebulizer (Nebulizer) 1 Mis Mis 1 EA .ROUTE DIRECTED Breathing Treatment #1 Ref 0 EA Prednisone (Prednisone) 10 Mg Tab 10 MG PO DAILY 40 mg (2 tablets) daily for the first 3 days; then 20 mg (1 tablet) for the next three days; then 10 mg tablet for the last 3 days. Then stop. #3 Ref 0 TAB Prednisone (Prednisone) 20 Mg Tab 20 MG PO DAILY Take 40 mg (2 tablets) daily for the first 3 days; then 20 mg (1 tablet) for the next three days; then 10 mg tablet for the last 3 days. Then stop. #3 Ref 0 TAB Prednisone (Prednisone) 20 Mg Tab 40 MG PO DAILY Take 40 mg (2 tablets) daily for the first 3 days; then 20 mg (1 tablet) for the next three days; then 10 mg tablet for the last 3 days. Then stop. #3 Ref 0 TAB Albuterol Neb (Albuterol Neb) 2.5 Mg/3 Ml Neb 2.5 MG NEB Q4HR NEB PRN wheezing/sob #30 NEBULE Continued Medications: Cyclobenzaprine (Flexeril) 7.5 Mg Tab Unknown Dose PO TID Muscle Spasm #90 Ref 0 TAB Hydrocodone-Acetaminophen (Hydrocodone-Acetaminophen) 10-325 mg Tab 1 TAB PO Q4H PRN PAIN Ref 0 TAB Claire Wagner MD R1 May 29, 2016 17:08
[2016-06-10] MEDS ORDERED: NEBUKIT5 (08:45)
[2016-06-10] MEDS ORDERED: ALBU0.08 NEB (08:45)
[2016-06-10] MEDS ORDERED: NEBULIZER1 MI1 (08:45)
[2016-06-10] MEDS ORDERED: VENTAER INH (08:46)
== END 2016-05-28 13:40 | disposition home or self-care (01) ==
LOC: NETRI 14:29 → NEDA 20:36 → N04A 05-27 00:38
PROVIDERS: ADMIT Family Medicine; ATTEND Family Medicine
DX: J45.21 Mild intermittent asthma with (acute) exacerbation (principal); R25.2 Cramp and spasm; R06.82 Tachypnea, not elsewhere classified; R05 Cough; R68.83 Chills (without fever); R09.89 Other specified symptoms and signs involving the circulatory and respiratory systems; R51 Headache; F12.90 Cannabis use, unspecified, uncomplicated
CPT/HCPCS: 71010; 71275; 80048; 80053; 81001; 82550; 82552; 83605; 84484; 84703; 85025; 85379; 85610; 85730; 87040; 87449; 87804; 93005; 94640; 94664; 96361; 96365; 96366; 96367; 99285; G0378; J0456; J0696; J1644; J2920; J2930; J7030; J7050; J7512; J7613; Q9967

== ENCOUNTER 2016-09-11 15:24 | Emergency (ER) | payer OTHER ==
[~2016-09-11] VITALS: Ht 175.3 cm; Wt 75.0 kg
[~2016-09-11 15:24] MED LIST changes: +ALBU0.08 NEB; -BACT800T5 PO; +CYCL7.5T33 PO; -HYDR-3535 PO; +HYDR-3583 PO; -LORTA5 PO; -MACR100C2 PO; +NEBUKIT5; +NEBULIZER1 MI1; -TEMA15 PO; +VENTAER INH
[2016-09-11 15:34] VITALS: BP 145/95; PULSE 94; RESP 16; TEMP 98; O2SAT 98
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
[2016-09-11] MEDS ORDERED: SODIUM CHLOR 0.9% 1000 ML INJ 1,000 ML IV ONE (16:00)
[2016-09-11] MEDS ORDERED: KETOROLAC TROMETHAMINE 30 MG/ML (IVP) VIAL IV PUSH ONE (16:00)
[2016-09-11] MEDS ORDERED: ORPHENADRINE INJ 60 MG/2 ML AMP IM ONE (16:00)
[2016-09-11 16:30] VITALS: BP 136/78; PULSE 74; RESP 16; O2SAT 98
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
[2016-09-11 17:13] VITALS: RESP 16
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
[2016-09-11] MEDS ORDERED: ROBA500T PO (18:16)
[2016-09-11] MEDS ORDERED: IBUP-232 PO (18:16)
== END 2016-09-11 18:55 | disposition home or self-care (01) ==
LOC: NEPC 15:24
DX: S16.1XXA Strain of muscle, fascia and tendon at neck level, initial encounter (principal); M54.5 Low back pain; T23.162A Burn of first degree of back of left hand, initial encounter; V49.40XA Driver injured in collision with unspecified motor vehicles in traffic accident, initial encounter; W22.11XA Striking against or struck by driver side automobile airbag, initial encounter
CPT/HCPCS: 70450; 72125; 72131; 73130; 84703; 96361; 96372; 96374; 99285; J1885; J2360; J7030

== ENCOUNTER 2016-09-16 18:38 | Emergency (ER) | payer OTHER ==
[~2016-09-16] VITALS: Ht 175.3 cm; Wt 75.0 kg
[~2016-09-16 18:38] MED LIST changes: +IBUP-232 PO; -NEBUKIT5; -NEBULIZER1 MI1; +ROBA500T PO
[2016-09-16 18:40] VITALS: BP 160/100; PULSE 95; RESP 18; TEMP 99; O2SAT 100
[2016-09-16 18:47] VITALS: BP 136/81
[2016-09-16] MEDS ORDERED: SILV1CRE20 TOPICAL (19:24)
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
[2016-09-16] MEDS ORDERED: SILVER SULFADIAZINE 1% CR 50 GM JAR TOPICAL ONE (19:30)
[2016-09-16] MEDS ORDERED: TETANUS/DIPHTHERIA TOXOID ADULT 0.5 ML VIAL IM ONE (19:30)
== END 2016-09-16 19:50 | disposition home or self-care (01) ==
LOC: NEPD 18:38
DX: T23.202A Burn of second degree of left hand, unspecified site, initial encounter (principal); V49.49XA Driver injured in collision with other motor vehicles in traffic accident, initial encounter; W22.11XA Striking against or struck by driver side automobile airbag, initial encounter; Y92.410 Unspecified street and highway as the place of occurrence of the external cause; Z23 Encounter for immunization
CPT/HCPCS: 16000; 16020; 90471; 90714